=== PATIENT | male | born 1955 | race Caucasian/White ===

== ENCOUNTER 2016-11-01 10:10 | Inpatient (IN) | payer BC, OTHER ==
[2016-10-23 12:55] LABS: HEMATOCRIT 42.8 % (40.0-51.0); HEMOGLOBIN 14.4 g/dL (13.6-17.8)
--- NOTE | ~2016-11-01 | OP ---
Record Of Operation [facility] [address] [place]. [address] NAME: MAYR ROWLEY : 57 STATUS : ADM IN PAT#: [id number] AGE: 61 ADM/REG DATE : 11/01/16 MR#: [id number] REPORT SERV DATE: 11/01/16 DICTATED BY: ANAYA NATARAJAN DATE: 11/01/16 REPORT STATUS : Draft TRANSCRIBED BY: MODL DATE: 11/01/16 DATE OF PROCEDURE: 11/01/2016 PREOPERATIVE DIAGNOSIS: Prostate cancer. POSTOPERATIVE DIAGNOSIS: Prostate cancer. PROCEDURE: Robotic-assisted laparoscopic radical prostatectomy with left laparoscopic pelvic lymph node dissection. SURGEON: Anaya Natarajan M.D. APPLICATIONS INTERN: SHE Ward. ANESTHESIA: General. PREOPERATIVE INDICATIONS: 61-year-old male with a positive family history of prostate cancer, presented with a PSA of 4.86. Biopsies disclosed a Maia 7, 4+3 prostate cancer on the left. He also had some Maia 6 on the right. A bone scan is negative. After reviewing his options, risks, alternatives, and benefits, he elected surgical management with the robotic approach. DESCRIPTION OF OPERATIVE PROCEDURE: Following adequate general anesthesia, the patient was placed in the modified lithotomy position, well padded and secured to the table, and placed in a steep Trendelenburg position. He was noted to be safely secured to the table and returned to a level position where he was prepped and draped in the usual sterile fashion. A 16-Maltese catheter was placed into the bladder from the operative field. Pneumoperitoneum was achieved with a Veress needle. A 12 mm port was placed in the left upper quadrant with the Optiview system. The camera was placed into the abdomen, the abdomen inspected. There were no abnormal findings. Under direct vision, the four robotic ports were placed as well as a left lower quadrant 5 mm port. The patient was returned to a Trendelenburg position and docked to the robot. The bladder was taken down by incising laterally along the median umbilical ligaments to the level of vas deferens bilaterally with the electrocautery ari. The space of Retzius was developed bluntly. Fat was dissected off the anterior surface of the prostate sharply. The endopelvic fascia was incised bilaterally and the levator muscle swept off the lateral surface of the prostate bilaterally. The dorsal vein complex was dissected out and controlled and divided with an endovascular CLAYTON stapler. The bladder neck was incised at its junction with the base of the prostate with the electrocautery spatula. The bladder was entered. The catheter was grasped with a ProGrasp grasper and used for anterior retraction of the prostate. The posterior bladder neck was developed and incised with the electrocautery spatula. A plane was bluntly developed between the prostate and posterior bladder neck. The anterior Denonvilliers fascia was incised to expose the vas deferens and seminal vesicles. The vas deferens and seminal Record Of [place] [id number] [place]. [address] NAME: MARY ROWLEY : 57 STATUS : ADM IN PAT#: [id number] AGE: 61 ADM/REG DATE : 11/01/16 MR#: [id number] REPORT SERV DATE: 11/01/16 DICTATED BY: ANAYA NATARAJAN DATE: 11/01/16 REPORT STATUS : Draft TRANSCRIBED BY: MODOzzie DATE: 11/01/16 vesicles were surrounded by a fair amount of inflammatory and edematous tissue. The vas deferens were dissected out bluntly, divided sharply, and the ends of the vas deferens were grasped with the ProGrasp grasper for additional anterior retraction on the prostate. The seminal vesicles were dissected out bluntly. Their blood supply controlled with interlocking clips and then divided sharply at their base. The bladder neck was inspected and did require some minor reconstruction with two oxxdbd-qv-miphi 3-0 Vicryl sutures at the 3 and 9 o'clock position taking care to avoid the ureteral orifices. Posterior Denonvilliers fascia was incised and a plane was bluntly developed between the rectum and prostate. The levator fascia was incised bilaterally and the neurovascular bundles bluntly and sharply dissected away from the posterior lateral surface of the prostate. They were noted to be inflamed. The pedicles were controlled with interlocking clips and divided sharply with a round-tip scissors. The urethra was dissected out with the round-tip scissors. The dorsal vein complex was secured to the pubic periosteum with a iqakxy-oh-qovvm 2-0 Monocryl suture. The urethra was then divided sharply at the prostatourethral junction. The catheter was withdrawn. The posterior urethra was divided as well as remaining apical attachments and the prostate was freed. A left laparoscopic pelvic lymph node dissection was performed with the margins of dissection being the anterior surface of the external iliac vein, the bifurcation of the external and internal iliac artery, and the pelvic sidewall both anterior and posterior to the obturator nerve. Margins were controlled with interlocking clips and the specimen divided sharply with a round-tip scissors. The sara specimen and prostate were placed in an EndoCatch sac and placed out of the view of the operative field. The pelvis was irrigated with sterile water and antibiotic solution and carefully inspected. There was excellent hemostasis and no apparent rectal injury. Posterior Denonvilliers fascia was then reapproximated to the posterior urethral plate with a running 3-0 V-Loc suture in a Portillo stitch fashion. The urethrovesical anastomosis was then performed with a running 3-0 V-Loc suture over a 20-Maltese catheter. The balloon was filled with 10 mL of sterile water. The bladder was irrigated with sterile water, and there was a watertight anastomosis. A 19 Crow drain was passed through one of the robotic ports and placed into the pelvis. The port was removed, its exit site demonstrating good hemostasis. The drain was fixed to the skin with 2-0 Prolene suture. The patient was de-docked from the robot and returned to a level position. The remaining trocars were removed under direct vision, their exit sites demonstrating good hemostasis. The periumbilical port was used to guide a transverse fascial incision to allow intact retrieval of the specimen. This was closed with 5 interrupted #1 Ethibond sutures. The port sites and periumbilical wound were irrigated with antibiotic solution and skin edges reapproximated with skin clips. The drain was left to grenade suction. The catheter was left to gravity drainage. Bandages were applied. The procedure was concluded. He was awakened from his anesthesia, had tolerated it well, and transferred to the recovery room in satisfactory condition. GALLO/MAYA Record Of [facility] [address] [place] [place] [address] NAME: MARY ROWLEY Wero : 57 STATUS : ADM IN [facility]#: [id number] AGE: 61 ADM/REG DATE : 11/01/16 MR#: [id number] REPORT SERV DATE: 11/01/16 DICTATED BY: ANAYA NATARAJAN DATE: 11/01/16 REPORT STATUS : Draft TRANSCRIBED BY: MAYA DATE: 11/01/16 Anaya Natarajan M.D. / [id number] CC: Anaya Natarajan M.D.
[~2016-11-01 10:10] MED LIST: ALPHAGAN P0.1 % OPH; XALAT OPH
[2016-11-01 17:33] LABS: HEMATOCRIT 45.1 % (40.0-51.0); HEMOGLOBIN 15.5 g/dL (13.6-17.8)
[2016-11-01 17:46] LABS: CREATININE 1.28 MG/DL (0.70-1.30); POTASSIUM, SERUM 4.5 MMOL/L (3.5-5.3)
== END 2016-11-02 13:52 | disposition home or self-care (01) | DRG 708 ==
LOC: SDC/OF 10:10 → 4SO 18:15
PROVIDERS: Urology
PROC: 07BC4ZZ Excision of Pelvis Lymphatic, Percutaneous Endoscopic Approach (ICD-10-PCS; 2016-11-01)
PROC: 8E0W4CZ Robotic Assisted Procedure of Trunk Region, Percutaneous Endoscopic Approach (ICD-10-PCS; 2016-11-01)
PROC: 0VT04ZZ Resection of Prostate, Percutaneous Endoscopic Approach (ICD-10-PCS; principal; 2016-11-01 12:30)
DX: C61 Malignant neoplasm of prostate (principal)
CPT/HCPCS: 82565; 84132; 85014; 85018; 88305; 88307; 88309; 93005; 97110-GP; 97161-GP; A9270-GY; J0690; J1885; J2250; J2405; J2710; J2795; J3010